=== PATIENT | male | born 1990 | race Caucasian/White ===

== ENCOUNTER 2018-02-24 21:37 | Emergency (ER) | payer OTHER ==
[~2018-02-24] VITALS: Ht 182.9 cm; Wt 99.8 kg
[2018-02-24 23:04] LABS: AMP/METHAMP Negative (Negative); BARBITURATES Negative (Negative); BENZODIAZEPINES Negative (Negative); COCAINE Negative (Negative); METHADONE Negative (Negative); OPIATES Negative (Negative); PCP Negative (Negative); THC POSITIVE (Negative)
[2018-02-24 23:30] VITALS: BP 123/69
--- NOTE | 2018-02-25 12:17 | EKG ---
[place] [address] ELECTROCARDIOGRAM REPORT Name: DANG HANEY Room: [facility]#: [id number] Admission: 02/24/18 Attend Phys: Discharge: 02/24/18 Date of : 89 Report #: [id number] THIS REPORT FOR: //name// [facility] ED Test Date: 2018-02-24 Test Time: 21:45:44 Pat Name: DANG HANEY Department: Room: Gender: M Supervising Chef: AGUEDA : 1990 Requested By: Deann Cruz Order Number: [id number] MD: Jeremy Grider Measurements Intervals [place] Rate: 113 P: 82 NE: 150 QRS: 30 QRSD: 90 T: 22 QT: 334 QTc: 458 Interpretive Statements Sinus tachycardia Abnormal inferior Q waves Nonspecific repol abnormality, lateral leads Baseline wander in lead(s) I,II,aVR No previous ECG available for comparison Electronically Signed On 02-25-2018 12:17:19 PERINATOLOGY PHYSICIAN by Jeremy Grider [email or web address] <ELECTRONICALLY SIGNED> By: Jeremy Grider MD, [facility] 02/25/18 1217 2145 44 Jeremy Grider MD, [facility] /EPI
== END 2018-02-24 23:33 | disposition home or self-care (01) ==
LOC: M.ERS 21:37
PROVIDERS: Emergency Medicine
DX: R00.0 Tachycardia, unspecified (principal); I48.91 Unspecified atrial fibrillation